=== PATIENT | male | born 1930 | race Native Hawaiian/Other Pacific Islander ===

== ENCOUNTER 2016-06-26 11:15 | Outpatient (CLI) | payer OTHER ==
[~2016-06-26 11:15] MED LIST: AMOX500C85 PO; AMOX875T8 PO; ASA LOW STR81 MG PO; CARBTAB6 PO; CEPACOL CGH1 LOZ MT; DICL75TA4 PO; FLUTICASONE50 MCG; HYDR25TA60 PO; METO25TA4 OR; PLAV; SIMV40TA57; TERAZOSIN10 MG OR
== END 2016-06-26 19:27 | disposition home or self-care (01) ==
LOC: RAD 11:15
DX: M54.42 Lumbago with sciatica, left side (principal)

== ENCOUNTER 2016-07-15 10:16 | Emergency (ER) | payer OTHER ==
[~2016-07-15] VITALS: Ht 177.8 cm; Wt 98.9 kg
[2016-07-15 11:00] VITALS: TEMP 98
[2016-07-15 13:00] VITALS: BP 146/90
== END 2016-07-15 13:30 | disposition home or self-care (01) ==
LOC: ED 10:16
DX: M54.16 Radiculopathy, lumbar region (principal); M54.5 Low back pain; G89.29 Other chronic pain
CPT/HCPCS: 99281

== ENCOUNTER 2016-08-09 10:10 | Outpatient (CLI) | payer OTHER | END 2016-08-09 11:15 | disposition home or self-care (01) | LOC: MRI 10:10 | DX: M54.5 Low back pain (principal); M79.605 Pain in left leg ==

== ENCOUNTER 2016-10-09 14:59 | Outpatient (CLI) | payer OTHER ==
[2016-10-09 15:37] LABS: POTASSIUM 4.1 mmol/L (3.6-5.2); SODIUM 142 mmol/L (136-145)
== END 2016-10-09 19:26 | disposition home or self-care (01) ==
LOC: LABW 14:59
PROVIDERS: Physician Assistant
DX: R60.0 Localized edema (principal)
CPT/HCPCS: 36415; 80053; 83880

== ENCOUNTER 2017-06-12 09:01 | Outpatient (CLI) | payer OTHER ==
[2017-06-12 09:31] LABS: PLATELET COUNT 186 K/uL (142-355)
[2017-06-12 09:48] LABS: POTASSIUM 4.3 mmol/L (3.6-5.2)
== END 2017-06-12 21:55 | disposition home or self-care (01) ==
LOC: LABW 09:01
PROVIDERS: Internal Medicine
DX: I10 Essential (primary) hypertension (principal)
CPT/HCPCS: 36415; 80053; 80061; 81000; 84443; 85027

== ENCOUNTER 2017-12-17 09:53 | Outpatient (CLI) | payer OTHER, MEDICARE | END 2017-12-17 19:17 | disposition home or self-care (01) | LOC: LABW 09:53 | PROVIDERS: Internal Medicine Cardiovascular Disease | DX: E78.5 Hyperlipidemia, unspecified (principal) | CPT/HCPCS: 36415; 80061 ==

== ENCOUNTER 2018-02-07 11:10 | Emergency (ER) | payer OTHER, MEDICARE ==
[~2018-02-07] VITALS: Ht 177.8 cm; Wt 102.1 kg
[2018-02-07 11:25] VITALS: TEMP 97.7
[2018-02-07 12:48] LABS: PLATELET COUNT 191 K/uL (142-355)
[2018-02-07 13:06] LABS: POTASSIUM 4.4 mmol/L (3.6-5.2); SODIUM 142 mmol/L (136-145)
[2018-02-07 14:02] VITALS: BP 118/70
== END 2018-02-07 14:02 | disposition home or self-care (01) ==
LOC: ED 11:10
DX: J20.9 Acute bronchitis, unspecified (principal); J44.9 Chronic obstructive pulmonary disease, unspecified; R60.9 Edema, unspecified; I45.19 Other right bundle-branch block
CPT/HCPCS: 36415; 80053; 81000; 82550; 82553; 83880; 84484; 85027; 93005; 94664; 96374; 99284; J2930

== ENCOUNTER 2018-02-11 08:26 | Outpatient (CLI) | payer OTHER, MEDICARE | END 2018-02-11 22:46 | disposition home or self-care (01) | LOC: CT 08:26 | DX: R06.02 Shortness of breath (principal) | CPT/HCPCS: Q9963 ==

== ENCOUNTER 2018-03-20 10:28 | Outpatient (CLI) | payer OTHER, MEDICARE | END 2018-03-20 19:27 | disposition home or self-care (01) | LOC: RESP 10:28 | DX: R06.02 Shortness of breath (principal) ==

== ENCOUNTER 2018-05-28 20:04 | Emergency (ER) | payer OTHER, MEDICARE ==
[~2018-05-28] VITALS: Ht 177.8 cm; Wt 102.1 kg
[2018-05-28 21:41] LABS: PLATELET COUNT 180 K/uL (142-355)
[2018-05-28 21:54] LABS: POTASSIUM 2.8 mmol/L (3.6-5.2)
[2018-05-29 01:07] VITALS: BP 146/96; TEMP 98.1
== END 2018-05-29 01:08 | disposition short-term general hospital (02) ==
LOC: ED 20:04
PROVIDERS: Internal Medicine
DX: R07.89 Other chest pain (principal); N17.8 Other acute kidney failure; E86.0 Dehydration; E87.6 Hypokalemia; I48.91 Unspecified atrial fibrillation; I45.19 Other right bundle-branch block
CPT/HCPCS: 36415; 80053; 81000; 82550; 84484; 85027; 93005; 96360; 99285

== ENCOUNTER 2018-06-11 10:46 | Outpatient (CLI) | payer OTHER, MEDICARE ==
[2018-06-11 11:40] LABS: PLATELET COUNT 211 K/uL (142-355)
[2018-06-11 12:39] LABS: POTASSIUM 4.1 mmol/L (3.6-5.2)
== END 2018-06-11 23:21 | disposition home or self-care (01) ==
LOC: RAD 10:46
PROVIDERS: Internal Medicine
DX: I25.10 Atherosclerotic heart disease of native coronary artery without angina pectoris (principal); I10 Essential (primary) hypertension; R60.0 Localized edema
CPT/HCPCS: 36415; 80053; 80061; 81000; 83880; 84439; 84443; 85027

== ENCOUNTER 2018-10-30 09:13 | Outpatient (CLI) | payer OTHER, MEDICARE | END 2018-10-30 19:56 | disposition home or self-care (01) | LOC: RAD 09:13 | DX: I25.10 Atherosclerotic heart disease of native coronary artery without angina pectoris (principal) ==

== ENCOUNTER 2019-02-05 09:33 | Outpatient (CLI) | payer OTHER, MEDICARE ==
[2019-02-05 09:53] LABS: PLATELET COUNT 177 K/uL (142-355)
[2019-02-05 10:09] LABS: POTASSIUM 4.4 mmol/L (3.6-5.2)
== END 2019-02-05 20:34 | disposition home or self-care (01) ==
LOC: LABW 09:33
PROVIDERS: Internal Medicine
DX: I25.10 Atherosclerotic heart disease of native coronary artery without angina pectoris (principal); E78.49 Other hyperlipidemia; Z79.899 Other long term (current) drug therapy; R06.02 Shortness of breath
CPT/HCPCS: 36415; 80053; 80061; 81000; 83880; 84439; 84443; 85027

== ENCOUNTER 2019-05-23 21:22 | Emergency (ER) | payer OTHER, MEDICARE ==
[~2019-05-23] VITALS: Ht 177.8 cm; Wt 99.8 kg
[2019-05-23 21:32] VITALS: BP 111/66; TEMP 98.6
[2019-05-23] MEDS ORDERED: POT CHLORIDE10 MEQ PO (22:20)
[2019-05-23] MEDS ORDERED: FURO20TA67 PO (22:21)
[2019-05-23] MEDS ORDERED: METO50TA63 PO (22:21)
== END 2019-05-24 00:05 | disposition home or self-care (01) ==
LOC: ED 21:22
DX: J10.1 Influenza due to other identified influenza virus with other respiratory manifestations (principal)
CPT/HCPCS: 87502; 87651; 99282; 99283

== ENCOUNTER 2019-05-27 14:00 | Inpatient (IN) | payer OTHER ==
[~2019-05-27 14:00] MED LIST changes: +FURO20TA67 PO; +METO50TA63 PO; +POT CHLORIDE10 MEQ PO
== END 2019-06-04 11:43 | disposition still patient (30) ==
LOC: PAVC 14:00
PROVIDERS: ADMIT Internal Medicine

== ENCOUNTER 2019-05-28 06:04 | Outpatient (CLI) | payer OTHER, MEDICARE ==
[2019-05-28 06:46] LABS: PLATELET COUNT 181 K/uL (142-355)
== END 2019-05-28 19:22 | disposition home or self-care (01) ==
LOC: LAB 06:04
PROVIDERS: Internal Medicine
DX: Z16.19 Resistance to other specified beta lactam antibiotics (principal); R68.89 Other general symptoms and signs; R79.89 Other specified abnormal findings of blood chemistry
CPT/HCPCS: 80053; 80061; 84153; 85027; 87081

== ENCOUNTER 2019-06-04 12:10 | Inpatient (IN) | payer OTHER | END 2019-07-04 11:22 | disposition still patient (30) | LOC: PAVC 12:10 | PROVIDERS: ADMIT Internal Medicine ==

== ENCOUNTER 2019-06-20 09:48 | Emergency (ER) | payer OTHER, MEDICARE ==
[~2019-06-20] VITALS: Ht 177.8 cm; Wt 99.8 kg
[2019-06-20 09:48] VITALS: TEMP 98.4
[2019-06-20 10:33] LABS: PLATELET COUNT 123 K/uL (142-355)
[2019-06-20 10:34] LABS: POTASSIUM 3.8 mmol/L (3.6-5.2)
[2019-06-20 13:38] VITALS: BP 102/69
== END 2019-06-20 13:42 ==
LOC: ED 10:04
PROVIDERS: Family Medicine
DX: J44.9 Chronic obstructive pulmonary disease, unspecified (principal)
CPT/HCPCS: 80053; 81000; 83880; 85027; 99283

== ENCOUNTER 2019-07-03 10:45 | Inpatient (IN) | payer OTHER, MEDICARE ==
[~2019-07-03] VITALS: Ht 177.8 cm; Wt 90.9 kg
[2019-07-03] VITALS (11 sets, daily range): BP systolic 72–108; BP diastolic 45–66; TEMP 97.1–97.9; Ht 177.8 cm; Wt 90.9 kg
[2019-07-03 11:58] LABS: PLATELET COUNT 365 K/uL (142-355)
[2019-07-03 12:03] LABS: POTASSIUM 3.9 mmol/L (3.6-5.2)
[2019-07-04] VITALS: BP 107/51
[2019-07-04 04:00] VITALS: BP 116/62
[2019-07-04 07:13] LABS: PLATELET COUNT 313 K/uL (142-355)
[2019-07-04 07:26] LABS: POTASSIUM 4.4 mmol/L (3.6-5.2)
[2019-07-04 11:36] VITALS: BP 112/64; TEMP 98.7
[2019-07-04 16:00] VITALS: BP 134/66; TEMP 98.6
[2019-07-04 20:00] VITALS: BP 102/59; TEMP 97
[2019-07-05] VITALS: BP 109/60; TEMP 98.3
[2019-07-05 04:00] VITALS: BP 116/60; TEMP 97.7
[2019-07-05 07:01] LABS: PLATELET COUNT 428 K/uL (142-355)
[2019-07-05 07:09] LABS: POTASSIUM 4.5 mmol/L (3.6-5.2)
[2019-07-05 21:46] VITALS: BP 121/80; TEMP 98.1
[2019-07-06] VITALS (17 sets, daily range): BP systolic 86–180; BP diastolic 46–69; TEMP 96.6–98.1
[2019-07-06 10:46] LABS: PLATELET COUNT 311 K/uL (142-355)
[2019-07-06 10:54] LABS: POTASSIUM 3.9 mmol/L (3.6-5.2)
[2019-07-07] VITALS (24 sets, daily range): BP systolic 106–173; BP diastolic 46–93; TEMP 96.8–99.1
[2019-07-07 05:44] LABS: PLATELET COUNT 342 K/uL (142-355)
[2019-07-07 05:51] LABS: POTASSIUM 4.7 mmol/L (3.6-5.2)
[2019-07-08] VITALS (22 sets, daily range): BP systolic 85–128; BP diastolic 35–66; TEMP 98–100
[2019-07-08 06:32] LABS: PLATELET COUNT 237 K/uL (142-355); POTASSIUM 3.9 mmol/L (3.6-5.2)
[2019-07-08 10:34] LABS: PLATELET COUNT 255 K/uL (142-355)
[2019-07-09] VITALS (28 sets, daily range): BP systolic 92–125; BP diastolic 34–64; TEMP 98.1–99.6
[2019-07-09 05:58] LABS: PLATELET COUNT 224 K/uL (142-355)
[2019-07-09 06:25] LABS: POTASSIUM 3.9 mmol/L (3.6-5.2)
[2019-07-10] VITALS (23 sets, daily range): BP systolic 86–113; BP diastolic 29–61; TEMP 94.5–99.8
[2019-07-10 01:56] LABS: PLATELET COUNT 173 K/uL (142-355)
[2019-07-10 02:25] LABS: POTASSIUM 4.1 mmol/L (3.6-5.2)
[2019-07-11] VITALS (23 sets, daily range): BP systolic 81–115; BP diastolic 37–66; TEMP 99–101.3
[2019-07-11 05:38] LABS: PLATELET COUNT 148 K/uL (142-355)
[2019-07-11 10:11] LABS: PLATELET COUNT 142 K/uL (142-355)
[2019-07-12] VITALS (24 sets, daily range): BP systolic 85–115; BP diastolic 44–66; TEMP 98.7–100.2
[2019-07-12 05:26] LABS: POTASSIUM 3.5 mmol/L (3.6-5.2)
[2019-07-12 05:30] LABS: PLATELET COUNT 111 K/uL (142-355)
[2019-07-13] VITALS (15 sets, daily range): BP systolic 67–658; BP diastolic 31–60; TEMP 98–100.4
[2019-07-13 06:06] LABS: POTASSIUM 4.7 mmol/L (3.6-5.2)
[2019-07-13 06:18] LABS: PLATELET COUNT 110 K/uL (142-355)
== END 2019-07-13 16:28 | disposition expired | DRG 177 ==
LOC: ED 10:45 → MED/SURG 14:09 → ICU 14:09
PROVIDERS: Internal Medicine; Internal Medicine Endocrinology, Diabetes & Metabolism; ADMIT Family Medicine
PROC: 30233N1 Transfusion of Nonautologous Red Blood Cells into Peripheral Vein, Percutaneous Approach (ICD-10-PCS; principal; 2019-07-09)
DX: U07.1 COVID-19 (principal); J18.8 Other pneumonia, unspecified organism; R65.21 Severe sepsis with septic shock; J96.01 Acute respiratory failure with hypoxia; N17.8 Other acute kidney failure; M62.82 Rhabdomyolysis; E87.0 Hyperosmolality and hypernatremia; E44.0 Moderate protein-calorie malnutrition; D62 Acute posthemorrhagic anemia; N40.0 Benign prostatic hyperplasia without lower urinary tract symptoms; G20 Parkinson's disease; F02.80 Dementia in other diseases classified elsewhere, unspecified severity, without behavioral disturbance, psychotic disturbance, mood disturbance, and anxiety; I25.10 Atherosclerotic heart disease of native coronary artery without angina pectoris; I10 Essential (primary) hypertension; I13.10 Hypertensive heart and chronic kidney disease without heart failure, with stage 1 through stage 4 chronic kidney disease, or unspecified chronic kidney disease; N18.3 Chronic kidney disease, stage 3 (moderate); R19.7 Diarrhea, unspecified
CPT/HCPCS: 36415; 36600; 80053; 80202; 81000; 82272; 82550; 82553; 82805; 83605; 84484; 85007; 85027; 85610; 86850; 86900; 86901; 86922; 87040; 87324; 87449; 87502; 93005; 94760; 96361; 96365; 96375; 99284; J0132; J0456; J1650; J1940; J2060; J2270; J2543; J2930; J3370; J3490; P9016; P9047